=== PATIENT | male | born 1945 | race African-American/Black ===

== ENCOUNTER 2022-03-26 07:54 | Emergency (ER) | payer MEDICARE, MEDICAID ==
[~2022-03-26] VITALS: Ht 172.7 cm; Wt 68.0 kg
[2022-03-26] MEDS ORDERED: ACETAMINOPHEN 325MG TABLET PO ONE (09:15)
[2022-03-26 10:36] LABS: CLARITY URINE HAZY (CLEAR); COLOR URINE YELLOW (YELLOW)
[2022-03-26 10:37] LABS: PROTEIN URINE TRACE (NEGATIVE)
[2022-03-26 10:38] LABS: KETONES URINE NEGATIVE (NEGATIVE); LEUKOCYTE ESTERASE URINE 1+ (NEGATIVE); NITRITE URINE NEGATIVE (NEGATIVE); OCCULT BLOOD URINE TRACE (NEGATIVE); UROBILINOGEN URINE 0.2 E.U./dL (0.2-1.0)
[2022-03-26] MEDS ORDERED: AMOX-424 MT (11:02)
[2022-03-26] MEDS ORDERED: AMOXICILLIN/POTASSIUM CLAVULANATE 875/125MG TAB PO NR (11:15)
[2022-03-26 11:58] VITALS: BP 138/68
== END 2022-03-26 12:00 | disposition home or self-care (01) ==
LOC: ER 08:21
DX: N45.1 Epididymitis (principal); N39.0 Urinary tract infection, site not specified; I10 Essential (primary) hypertension; J44.9 Chronic obstructive pulmonary disease, unspecified; I25.2 Old myocardial infarction
CPT/HCPCS: 76870; 81003; 87077; 87186; 93976; 99285

== ENCOUNTER 2022-04-04 08:03 | Emergency (ER) | payer MEDICARE, MEDICAID ==
[~2022-04-04] VITALS: Ht 188 cm; Wt 75.0 kg
[~2022-04-04 08:03] MED LIST: AMOX-424 MT
[2022-04-04 08:05] VITALS: BP 138/76
[2022-04-04 09:14] LABS: CLARITY URINE CLEAR (CLEAR); COLOR URINE YELLOW (YELLOW); KETONES URINE NEGATIVE (NEGATIVE); LEUKOCYTE ESTERASE URINE TRACE (NEGATIVE); NITRITE URINE NEGATIVE (NEGATIVE); OCCULT BLOOD URINE NEGATIVE (NEGATIVE); PH URINE 5.5 (4.5-8.0); PROTEIN URINE NEGATIVE (NEGATIVE); SPECIFIC GRAVITY URINE 1.015 (1.005-1.030); UROBILINOGEN URINE 0.2 E.U./dL (0.2-1.0)
[2022-04-04] MEDS ORDERED: TOPUD PO (10:42)
== END 2022-04-04 11:42 | disposition home or self-care (01) ==
LOC: ER 08:43
DX: N50.812 Left testicular pain (principal); J44.1 Chronic obstructive pulmonary disease with (acute) exacerbation; I25.2 Old myocardial infarction; I10 Essential (primary) hypertension
CPT/HCPCS: 76870; 81003; 93976; 99284

== ENCOUNTER → 2022-05-24 | Outpatient (CLI) | payer OTHER, MEDICARE, MEDICAID ==
[~2022-05-24] MED LIST changes: +TOPUD PO
== END | disposition home or self-care (01) ==
LOC: NM 08:23
DX: J44.9 Chronic obstructive pulmonary disease, unspecified (principal); R06.02 Shortness of breath
CPT/HCPCS: 71045; 78582; A9540; A9558

== ENCOUNTER 2024-07-27 10:40 | Emergency (ER) | payer OTHER ==
[~2024-07-27] VITALS: Ht 177.8 cm; Wt 73.0 kg
[2024-07-27 10:45] VITALS: O2SAT 97
[2024-07-27 12:33] LABS: BASOPHILS % 0.9 % (0.0-2.0); EOSINOPHILS % 1.6 % (0.0-5.0); HEMATOCRIT. 42.3 % (42.0-52.0); HEMOGLOBIN. 13.9 g/dL (14.0-18.0); LYMPHOCYTES % 12.7 % (20.0-50.0); MEAN CORPUSCULAR HEMOGLOBIN 29.4 pg (28.0-32.0); MEAN CORPUSCULAR HGB CONC 32.9 g/dL (31.0-37.0); MEAN CORPUSCULAR VOLUME 89.6 fL (80.0-94.0); MEAN PLATELET VOLUME 8.7 fl (7.4-10.4); MONOCYTES % 9.8 % (2.0-8.0); PLATELET 196 x1000/uL (130-400); RED BLOOD CELL COUNT 4.72 mill/uL (4.7-6.1); RED CELL DISTRIBUTION WIDTH 15.7 % (11.6-14.6); WHITE BLOOD COUNT 5.8 x1000/uL (4.5-11.0)
[2024-07-27] MEDS: ACETAMINOPHEN 325MG TABLET PO NR (12:35)
[2024-07-27 12:40] LABS: CHLORIDE 105 mEq/L (98-107); POTASSIUM 4.1 mEq/L (3.5-5.1); SODIUM 140 mEq/L (136-145)
[2024-07-27 12:41] LABS: CALCIUM 9.1 mg/dL (8.7-10.4); CARBON DIOXIDE 33 mEq/L (21-32)
[2024-07-27 12:46] LABS: GLUCOSE 110 mg/dL (70-105); UREA NITROGEN BLOOD 11 mg/dL (9-23)
[2024-07-27 12:48] LABS: ALANINE AMINOTRANSFERASE 15 IU/L (10-49); ALBUMIN 3.9 g/dL (3.2-4.8); ASPARTATE AMINOTRANSFERASE 16 IU/L (<34); BILIRUBIN DIRECT 0.2 mg/dL (<=3.0); BILIRUBIN TOTAL 0.4 mg/dL (0.1-1.0)
[2024-07-27 12:53] LABS: PROTHROMBIN TIME 11.6 sec (9.6-11.0)
[2024-07-27 13:42] LABS: CLARITY URINE CLEAR (CLEAR); COLOR URINE YELLOW (YELLOW); GLUCOSE URINE NEGATIVE (NEGATIVE); KETONES URINE NEGATIVE (NEGATIVE); LEUKOCYTE ESTERASE URINE 2+ (NEGATIVE); NITRITE URINE NEGATIVE (NEGATIVE); OCCULT BLOOD URINE NEGATIVE (NEGATIVE); PH URINE 6.5 (4.5-8.0); PROTEIN URINE NEGATIVE (NEGATIVE); SPECIFIC GRAVITY URINE 1.011 (1.005-1.030); UROBILINOGEN URINE 0.2 E.U./dL (0.2-1.0)
[2024-07-27 13:59] LABS: BACTERIA URINE 2+; RBC URINE 0-2 /hpf (0-2); SQUAMOUS EPITHELIAL CELL URINE RARE /lpf (RARE/1+); WBC URINE 15-25 /hpf (0-2); YEAST URINE NONE SEEN
[2024-07-27] MEDS ORDERED: ESMOLOL 2500MG PREMIX 250 ML IV NR (16:30)
[2024-07-27] MEDS ORDERED: CEFEPIME 1GM IN DEXT 5% 50ML IV ONE (17:00)
[2024-07-27] MEDS ORDERED: ATORVASTATIN (17:27)
[2024-07-27] MEDS ORDERED: LOSARTAN (17:27)
[2024-07-27] MEDS ORDERED: ASPIRIN (17:27)
[2024-07-27] MEDS ORDERED: PLAVIX (17:27)
[2024-07-27] MEDS ORDERED: METOPROLOL (17:27)
[2024-07-27] MEDS: IOHEXOL-300 100 ML BOTTLE ONE (17:40)
[2024-07-27] MEDS: ESMOLOL 2500MG PREMIX 250 ML IV PRN (17:40)
[2024-07-27] MEDS: CEFEPIME 1GM/50ML 50 ML IV NR (18:06)
[2024-07-27] MEDS: MORPHINE SULFATE 4 MG/ML INJ (FOR IV/IM USE) IV NR (18:06)
[2024-07-27 18:22] VITALS: BP 142/76; PULSE 55; RESP 16; TEMP 36.78072; O2SAT 97
[2024-07-27] MEDS ORDERED: IOHEXOL-300 100 ML BOTTLE ONE (23:35)
== END 2024-07-27 18:54 | disposition short-term general hospital (02) ==
LOC: ER 10:40
DX: T82.330A Leakage of aortic (bifurcation) graft (replacement), initial encounter (principal); J44.9 Chronic obstructive pulmonary disease, unspecified; I10 Essential (primary) hypertension; K59.00 Constipation, unspecified; X58.XXXA Exposure to other specified factors, initial encounter; Y93.89 Activity, other specified; Y92.89 Other specified places as the place of occurrence of the external cause; Y99.8 Other external cause status
CPT/HCPCS: 99285; 74177; 96365; 71045; 80076; 80048; 81003; 83690; 85025; 85610; 87086; 87186; 87077; 36415; 96368; Q9967; J0692; J3490

== ENCOUNTER 2025-09-18 01:30 | Inpatient (IN) | payer OTHER ==
[2025-09-18] VITALS (7 sets, daily range): BP systolic 114–126; BP diastolic 56–63; PULSE 74–88; RESP 16–20; TEMP 36–36.4; O2SAT 94–99
[~2025-09-18] VITALS: Ht 177.8 cm; Wt 61.2 kg
[~2025-09-18 01:30] MED LIST changes: +ALBU90AE INH; +ALFU10TA46 PO; -AMOX-424 MT; +ASPIRIN PO; +ATORVASTATIN PO; +AZIT500T8 MT; +LOSARTAN PO; +METOPROLOL; +P20 MT; +PLAVIX; +PROT40 MT; +TAMS-54 PO; -TOPUD PO
[2025-09-18] MEDS ORDERED: MORPHINE SULFATE 4 MG/ML INJ (FOR IV/IM USE) IV ONE (01:45)
[2025-09-18] MEDS: ONDANSETRON HCL 4MG/2ML INJ IV ONE (01:45)
[2025-09-18 02:28] LABS: HEMATOCRIT. 40.1 % (42.0-52.0); HEMOGLOBIN. 12.5 g/dL (14.0-18.0); MEAN PLATELET VOLUME 9.2 fl (7.4-10.4); PLATELET 140 x1000/uL (130-400); RED BLOOD CELL COUNT 4.54 mill/uL (4.7-6.1); RED CELL DISTRIBUTION WIDTH 16.4 % (11.6-14.6)
[2025-09-18 02:39] LABS: CREATININE 1.0 mg/dL (0.6-1.3); UREA NITROGEN BLOOD 11 mg/dL (9-23)
[2025-09-18 02:41] LABS: ASPARTATE AMINOTRANSFERASE 20 IU/L (<34); BILIRUBIN DIRECT 0.2 mg/dL (<=3.0); BILIRUBIN TOTAL 0.6 mg/dL (0.1-1.0); PROTEIN TOTAL 6.5 g/dL (6.0-8.3)
[2025-09-18] MEDS: MORPHINE SULFATE 4 MG/ML INJ (FOR IV/IM USE) IV NR (03:42)
[2025-09-18] MEDS: ONDANSETRON HCL 4MG/2ML INJ IV NR (03:42)
[2025-09-18] MEDS ORDERED: IPRATROPIUM/ALBUTEROL 0.5-3(2.5)MG/3ML NEB HHN PRN (08:00)
[2025-09-18] MEDS ORDERED: MAGNESIUM/ALUMINUM HYDROXIDE/SIMETHICONE 30ML UDC PO PRN (08:00)
[2025-09-18] MEDS ORDERED: ONDANSETRON HCL 4MG/2ML INJ IV PRN (08:00)
[2025-09-18] MEDS ORDERED: ACETAMINOPHEN 325MG TABLET PO PRN (08:00)
[2025-09-18 08:39] LABS: BAND% 1.0 % (1.0-6.0); LYMPHOCYTES % MANUAL 4.0 % (20.0-50.0); MONOCYTES % MANUAL 9.0 % (2.0-8.0); NEUTROPHILS % MANUAL 86.0 % (45.0-75.0); PLATELET ESTIMATE NORMAL
[2025-09-18] MEDS ORDERED: NALOXONE HCL 0.4MG/ML VIAL IV PRN (09:00)
[2025-09-18] MEDS: HYDROCODONE/ACETAMINOPHEN 5/325MG TABLET PO PRN (09:42)
[2025-09-18] MEDS: ASPIRIN 81MG TABLET PO SCH (11:03)
[2025-09-18] MEDS: ENOXAPARIN 40MG/0.4ML SYR SUBCUT SCH (11:03)
[2025-09-18] MEDS: SODIUM CHLORIDE 0.45% 1,000 ML IV SCH (11:04)
[2025-09-18] MEDS: AZITHROMYCIN 500MG/250ML 250 ML IV SCH (11:53)
[2025-09-18] MEDS: IPRATROPIUM/ALBUTEROL 0.5-3(2.5)MG/3ML NEB HHN SCH (17:57)
[2025-09-18] MEDS: ATORVASTATIN CALCIUM 40MG TABLET PO SCH (20:23)
[2025-09-19] VITALS (11 sets, daily range): BP systolic 126–150; BP diastolic 71–81; PULSE 72–101; RESP 16–24; TEMP 36.2–36.6; O2SAT 91–97
[2025-09-19 00:53] LABS: FOLIC ACID (FOLATE) SERUM 3.83 ng/mL (>5.38)
[2025-09-19 00:54] LABS: VITAMIN B12 SERUM 579 pg/mL (211-911)
[2025-09-19 01:10] LABS: TROPONIN I HIGH SENSITIVITY 4920 ng/L (3.0-53)
[2025-09-19 02:07] LABS: CREATINE KINASE MB FRACTION 5.5 ng/mL (0.5-3.6)
[2025-09-19 02:14] LABS: TROPONIN I HIGH SENSITIVITY 5316 ng/L (3.0-53)
[2025-09-19] MEDS ORDERED: ENALAPRIL 1.25 MG in DEXTROSE 5% WATER 50 ML IV PRN (02:30)
[2025-09-19] MEDS ORDERED: ENALAPRIL 2.5MG/2ML VIAL 2ML IV SCH (06:00)
[2025-09-19] MEDS: CLOPIDOGREL 75MG TABLET PO SCH (08:43)
[2025-09-19] MEDS: PANTOPRAZOLE SODIUM 40 MG/VIAL IV SCH (08:43)
[2025-09-19] MEDS ORDERED: ENALAPRIL 1.25MG/ML VIAL 1ML IV PRN (13:45)
[2025-09-19] MEDS: LOSARTAN 25 MG TABLET PO SCH (13:48)
[2025-09-19] MEDS ORDERED: ENOXAPARIN 60MG/0.6ML SYR SUBCUT NR (14:00)
[2025-09-19 14:04] LABS: HEMATOCRIT. 35.4 % (42.0-52.0); HEMOGLOBIN. 11.5 g/dL (14.0-18.0); MEAN PLATELET VOLUME 9.6 fl (7.4-10.4); PLATELET 127 x1000/uL (130-400); RED BLOOD CELL COUNT 4.03 mill/uL (4.7-6.1); RED CELL DISTRIBUTION WIDTH 16.4 % (11.6-14.6)
[2025-09-19] MEDS: ENOXAPARIN 30MG/0.3ML SYR SUBCUT SCH (14:15)
[2025-09-19 14:17] LABS: CREATINE KINASE MB FRACTION 3.1 ng/mL (0.5-3.6); CREATININE 0.7 mg/dL (0.6-1.3); TRIGLYCERIDE 50 mg/dL (0-150); UREA NITROGEN BLOOD 6 mg/dL (9-23)
[2025-09-19 14:18] LABS: ASPARTATE AMINOTRANSFERASE 24 IU/L (<34); BILIRUBIN DIRECT 0.2 mg/dL (<=3.0); BILIRUBIN TOTAL 0.5 mg/dL (0.1-1.0); CREATINE KINASE MB FRACTION 3.2 ng/mL (0.5-3.6); LDL CHOLESTEROL 25 mg/dL (5-100); PROTEIN TOTAL 6.0 g/dL (6.0-8.3)
[2025-09-19 14:21] LABS: T4 FREE 1.63 ng/dL (0.89-1.76)
[2025-09-19 14:27] LABS: TROPONIN I HIGH SENSITIVITY 4066 ng/L (3.0-53)
[2025-09-19] MEDS ORDERED: LOSA100T33 PO (16:47)
[2025-09-19] MEDS ORDERED: CLOP-31 PO (16:47)
[2025-09-19] MEDS ORDERED: ASPI-1497 PO (16:47)
[2025-09-19] MEDS ORDERED: ATOR-2 PO (16:48)
[2025-09-19] MEDS: NITROGLYCERIN OINT 1GM/INCH UDPKT TD SCH (18:30)
[2025-09-19] MEDS ORDERED: ENOXAPARIN 60MG/0.6ML SYR SUBCUT SCH (21:00)
[2025-09-19 21:27] LABS: LYMPHOCYTES % MANUAL 9.0 % (20.0-50.0); MONOCYTES % MANUAL 10.0 % (2.0-8.0); NEUTROPHILS % MANUAL 81.0 % (45.0-75.0); PLATELET ESTIMATE SLIGHTLY DECREASED
[2025-09-20] VITALS (10 sets, daily range): BP systolic 121–140; BP diastolic 71–87; PULSE 70–92; RESP 16–23; TEMP 35.7–36.7; O2SAT 93–100
[2025-09-20 01:20] LABS: TROPONIN I HIGH SENSITIVITY 3404 ng/L (3.0-53)
[2025-09-20] MEDS ORDERED: ENOXAPARIN 60MG/0.6ML SYR SUBCUT SCH (06:00)
[2025-09-20] MEDS: HYDROMORPHONE HCL/PF 2MG/ML INJ IV PRN (06:17)
[2025-09-20 07:15] LABS: BASOPHILS % 0.2 % (0.0-2.0); EOSINOPHILS % 1.5 % (0.0-5.0); HEMATOCRIT. 39.3 % (42.0-52.0); HEMOGLOBIN. 12.7 g/dL (14.0-18.0); LYMPHOCYTES % 7.8 % (20.0-50.0); MEAN PLATELET VOLUME 9.3 fl (7.4-10.4); MONOCYTES % 11.2 % (2.0-8.0); NEUTROPHILS % 79.3 % (40.0-76.0); PLATELET 163 x1000/uL (130-400); RED BLOOD CELL COUNT 4.48 mill/uL (4.7-6.1); RED CELL DISTRIBUTION WIDTH 16.5 % (11.6-14.6)
[2025-09-20 07:37] LABS: INR 1.1
[2025-09-20 07:39] LABS: CREATININE 0.6 mg/dL (0.6-1.3)
[2025-09-20 07:40] LABS: UREA NITROGEN BLOOD 5 mg/dL (9-23)
[2025-09-20] MEDS: METOPROLOL SUCCINATE 50MG ER TABLET PO SCH (08:42)
[2025-09-20] MEDS: ENOXAPARIN 60MG/0.6ML SYR SUBCUT SCH (08:42)
[2025-09-20] MEDS: AMLODIPINE 2.5MG TABLET PO SCH (08:42)
[2025-09-20] MEDS ORDERED: CEFTRIAXONE 1GM/50ML 50 ML IV SCH (16:00)
[2025-09-20] MEDS: FUROSEMIDE 40MG/4ML VIAL IVP SCH (16:11)
[2025-09-20] MEDS: POLYETHYLENE GLYCOL 3350 (17GM) 1 DOSE PACK PO SCH (16:12)
[2025-09-20] MEDS: CEFTRIAXONE 1GM/50ML 50 ML IV SCH (18:02)
[2025-09-21] VITALS: BP 159/95; PULSE 82; RESP 18; TEMP 36.7; O2SAT 96
[2025-09-21] MEDS: CLONIDINE 0.1MG TABLET PO PRN (01:03)
[2025-09-21 02:54] VITALS: PULSE 85; RESP 18; O2SAT 95
[2025-09-21 04:00] VITALS: BP 140/82; PULSE 80; RESP 18; TEMP 36.4; O2SAT 98
[2025-09-21 08:42] LABS: PLATELET 178 x1000/uL (130-400); RED BLOOD CELL COUNT 4.31 mill/uL (4.7-6.1); RED CELL DISTRIBUTION WIDTH 16.3 % (11.6-14.6)
[2025-09-21 08:56] LABS: CREATININE 0.7 mg/dL (0.6-1.3)
[2025-09-21 08:57] LABS: UREA NITROGEN BLOOD 9 mg/dL (9-23)
[2025-09-21 08:58] VITALS: PULSE 94; RESP 18; O2SAT 96
[2025-09-21] MEDS ORDERED: FENTANYL CITRATE/PF 50MCG/ML 2ML VIAL ONE (10:05)
[2025-09-21] MEDS ORDERED: IODIXANOL 320MG/ML 100 ML BOTTLE IV ONE (10:06)
[2025-09-21] MEDS ORDERED: HEPARIN 1000 UNITS/ML 10ML ONE (10:06)
[2025-09-21] MEDS ORDERED: MIDAZOLAM HCL 2 MG/2 ML VIAL ONE (10:06)
[2025-09-21] MEDS ORDERED: LIDOCAINE HCL 1% 20ML VIAL ONE (10:07)
[2025-09-21] MEDS ORDERED: ASPIRIN/SOD BICARB/CITRIC ACID 324MG TAB EFF ONE (10:17)
[2025-09-21 10:34] LABS: TROPONIN I HIGH SENSITIVITY 2725 ng/L (3.0-53)
[2025-09-21] MEDS: SODIUM CHLORIDE 0.45% 1,000 ML IV ONE (11:15)
[2025-09-21] MEDS ORDERED: ATROPINE SULFATE 1MG/10ML SYR IV PRN (11:15)
[2025-09-21] MEDS ORDERED: ONDANSETRON HCL 4MG/2ML INJ IV PRN (11:15)
[2025-09-21] MEDS ORDERED: ACETAMINOPHEN 325MG TABLET PO PRN (11:15)
[2025-09-21 12:26] VITALS: PULSE 91; RESP 17; O2SAT 99
[2025-09-21 20:25] VITALS: BP 147/80; PULSE 92; RESP 18; TEMP 36.7; O2SAT 95
[2025-09-22] VITALS (9 sets, daily range): BP systolic 111–158; BP diastolic 67–88; PULSE 73–104; RESP 15–24; TEMP 36.3–36.8; O2SAT 94–99
[2025-09-22 06:45] LABS: HEMATOCRIT. 35.8 % (42.0-52.0); HEMOGLOBIN. 11.8 g/dL (14.0-18.0); MEAN PLATELET VOLUME 10.1 fl (7.4-10.4); PLATELET 160 x1000/uL (130-400); RED BLOOD CELL COUNT 4.13 mill/uL (4.7-6.1); RED CELL DISTRIBUTION WIDTH 15.8 % (11.6-14.6)
[2025-09-22 07:13] LABS: CREATININE 0.7 mg/dL (0.6-1.3)
[2025-09-22 07:14] LABS: UREA NITROGEN BLOOD 9 mg/dL (9-23)
[2025-09-22] MEDS: DOCUSATE SODIUM 100MG CAPSULE PO PRN (09:28)
[2025-09-22] MEDS: FOLIC ACID 1MG TABLET PO SCH (09:28)
[2025-09-22] MEDS: GUAIFENESIN 200MG/10ML SUGAR FREE UDC PO PRN (09:28)
[2025-09-22 12:44] LABS: TROPONIN I HIGH SENSITIVITY 1482 ng/L (3.0-53)
[2025-09-22] MEDS: ACETAMINOPHEN 325MG TABLET PO PRN (13:19)
[2025-09-22 15:18] LABS: LYMPHOCYTES % MANUAL 3.0 % (20.0-50.0); MONOCYTES % MANUAL 12.0 % (2.0-8.0); NEUTROPHILS % MANUAL 85.0 % (45.0-75.0); PLATELET ESTIMATE NORMAL
[2025-09-22] MEDS: NITROGLYCERIN OINT 1GM/INCH UDPKT TD SCH (16:02)
[2025-09-22] MEDS: IOHEXOL-300 100 ML BOTTLE ONE (16:03)
[2025-09-22] MEDS: MORPHINE SULFATE 4 MG/ML INJ (FOR IV/IM USE) IV ONE (16:04)
[2025-09-22] MEDS: AMLODIPINE 2.5MG TABLET PO SCH (22:07)
[2025-09-23] VITALS (8 sets, daily range): BP systolic 127–144; BP diastolic 71–90; PULSE 77–93; RESP 16–33; TEMP 36.4–36.8; O2SAT 92–99
[2025-09-23 06:26] LABS: HEMATOCRIT. 35.8 % (42.0-52.0); HEMOGLOBIN. 11.4 g/dL (14.0-18.0); MEAN PLATELET VOLUME 9.1 fl (7.4-10.4); PLATELET 169 x1000/uL (130-400); RED BLOOD CELL COUNT 4.09 mill/uL (4.7-6.1); RED CELL DISTRIBUTION WIDTH 16.5 % (11.6-14.6)
[2025-09-23 06:52] LABS: CREATININE 0.6 mg/dL (0.6-1.3)
[2025-09-23 06:53] LABS: UREA NITROGEN BLOOD 8 mg/dL (9-23)
[2025-09-23] MEDS: ENOXAPARIN 40MG/0.4ML SYR SUBCUT SCH (08:51)
[2025-09-23] MEDS: MORPHINE SULFATE 4 MG/ML INJ (FOR IV/IM USE) IV PRN (09:03)
[2025-09-23] MEDS: LACTULOSE 20G/30ML UDC PO NR (10:53)
[2025-09-23] MEDS: NA PHOS,M-B/NA PHOS,DI-BA ENEMA 118ML PR ONE (11:32)
[2025-09-23 13:50] LABS: TROPONIN I HIGH SENSITIVITY 741 ng/L (3.0-53)
[2025-09-23] MEDS: LACTULOSE 20G/30ML UDC PO SCH (16:05)
[2025-09-23] MEDS: NITROGLYCERIN OINT 1GM/INCH UDPKT TD SCH (16:06)
[2025-09-23 17:11] LABS: LYMPHOCYTES % MANUAL 7.0 % (20.0-50.0); MONOCYTES % MANUAL 19.0 % (2.0-8.0); NEUTROPHILS % MANUAL 74.0 % (45.0-75.0); PLATELET ESTIMATE NORMAL
[2025-09-23] MEDS: LOSARTAN 25 MG TABLET PO SCH (22:12)
[2025-09-24] VITALS (9 sets, daily range): BP systolic 119–155; BP diastolic 71–80; PULSE 73–87; RESP 17–24; TEMP 36.3–36.9; O2SAT 90–98
[2025-09-24 06:51] LABS: HEMATOCRIT. 36.3 % (42.0-52.0); HEMOGLOBIN. 11.6 g/dL (14.0-18.0); MEAN PLATELET VOLUME 9.0 fl (7.4-10.4); PLATELET 191 x1000/uL (130-400); RED BLOOD CELL COUNT 4.15 mill/uL (4.7-6.1); RED CELL DISTRIBUTION WIDTH 16.3 % (11.6-14.6)
[2025-09-24 07:10] LABS: CREATININE 0.7 mg/dL (0.6-1.3); UREA NITROGEN BLOOD 8 mg/dL (9-23)
[2025-09-24] MEDS: POTASSIUM CHLORIDE 20MEQ/PACKET PO NR (08:40)
[2025-09-24] MEDS: FUROSEMIDE 40MG/4ML VIAL IVP NR (09:58)
[2025-09-24 10:25] LABS: TROPONIN I HIGH SENSITIVITY 373 ng/L (3.0-53)
[2025-09-24] MEDS: IPRATROPIUM/ALBUTEROL 0.5-3(2.5)MG/3ML NEB HHN SCH ×2 (11:00→11:12)
[2025-09-24] MEDS ORDERED: IPRATROPIUM/ALBUTEROL 0.5-3(2.5)MG/3ML NEB HHN SCH (12:00)
[2025-09-24] MEDS: CEFTRIAXONE 1GM/50ML 50 ML IV SCH (17:27)
[2025-09-24] MEDS ORDERED: METO25TA6 PO (20:38)
[2025-09-24] MEDS ORDERED: LOSA50TA41 MT (20:38)
[2025-09-24] MEDS ORDERED: SENN-22 MT (20:38)
[2025-09-24] MEDS: AMLODIPINE 2.5MG TABLET PO SCH (22:00)
[2025-09-24] MEDS: METOPROLOL TARTRATE 25MG TABLET PO SCH (22:00)
[2025-09-25] VITALS (9 sets, daily range): BP systolic 122–139; BP diastolic 62–81; PULSE 77–93; RESP 14–25; TEMP 36.4–36.8; O2SAT 90–99
[2025-09-25 07:36] LABS: TROPONIN I HIGH SENSITIVITY 180 ng/L (3.0-53)
[2025-09-25 07:40] LABS: CREATININE 0.6 mg/dL (0.6-1.3)
[2025-09-25 07:41] LABS: HEMATOCRIT. 32.4 % (42.0-52.0); HEMOGLOBIN. 10.6 g/dL (14.0-18.0); MEAN PLATELET VOLUME 8.7 fl (7.4-10.4); PLATELET 202 x1000/uL (130-400); RED BLOOD CELL COUNT 3.76 mill/uL (4.7-6.1); RED CELL DISTRIBUTION WIDTH 15.4 % (11.6-14.6); UREA NITROGEN BLOOD 10 mg/dL (9-23)
[2025-09-25] MEDS: TAMSULOSIN HCL 0.4MG SR CAPSULE PO SCH (09:19)
[2025-09-25] MEDS: POTASSIUM CHLORIDE 20MEQ TABLET SR PO SCH (17:51)
[2025-09-25 17:59] LABS: EOSINOPHILS % MANUAL 4.0 % (0.0-5.0); LYMPHOCYTES % MANUAL 5.0 % (20.0-50.0); MONOCYTES % MANUAL 13.0 % (2.0-8.0); NEUTROPHILS % MANUAL 78.0 % (45.0-75.0); PLATELET ESTIMATE NORMAL
[2025-09-25 19:00] LABS: EOSINOPHILS % MANUAL 4.0 % (0.0-5.0); LYMPHOCYTES % MANUAL 9.0 % (20.0-50.0); MONOCYTES % MANUAL 12.0 % (2.0-8.0); NEUTROPHILS % MANUAL 75.0 % (45.0-75.0)
[2025-09-25 19:01] LABS: PLATELET ESTIMATE NORMAL
[2025-09-26] VITALS (9 sets, daily range): BP systolic 114–136; BP diastolic 65–88; PULSE 75–100; RESP 15–23; TEMP 36.6–37; O2SAT 91–98
[2025-09-26 07:47] LABS: CLARITY URINE CLEAR (CLEAR); COLOR URINE YELLOW (YELLOW); GLUCOSE URINE NEGATIVE (NEGATIVE); KETONES URINE NEGATIVE (NEGATIVE); LEUKOCYTE ESTERASE URINE 1+ (NEGATIVE); NITRITE URINE NEGATIVE (NEGATIVE); OCCULT BLOOD URINE 3+ (NEGATIVE); PH URINE 8.0 (4.5-8.0); PROTEIN URINE TRACE (NEGATIVE); SPECIFIC GRAVITY URINE 1.012 (1.005-1.030); UROBILINOGEN URINE 1.0 E.U./dL (0.2-1.0)
[2025-09-26 08:08] LABS: CREATININE 0.6 mg/dL (0.6-1.3); UREA NITROGEN BLOOD 5 mg/dL (9-23)
[2025-09-26 08:50] LABS: BACTERIA URINE NONE SEEN; SQUAMOUS EPITHELIAL CELL URINE 1+ /lpf (RARE/1+); YEAST URINE NONE SEEN
[2025-09-26 12:07] LABS: BASOPHILS % 0.1 % (0.0-2.0); EOSINOPHILS % 1.3 % (0.0-5.0); HEMATOCRIT. 34.8 % (42.0-52.0); HEMOGLOBIN. 11.4 g/dL (14.0-18.0); LYMPHOCYTES % 7.7 % (20.0-50.0); MEAN PLATELET VOLUME 9.1 fl (7.4-10.4); MONOCYTES % 11.3 % (2.0-8.0); NEUTROPHILS % 79.6 % (40.0-76.0); PLATELET 239 x1000/uL (130-400); RED BLOOD CELL COUNT 4.04 mill/uL (4.7-6.1); RED CELL DISTRIBUTION WIDTH 15.8 % (11.6-14.6)
[2025-09-26 12:25] LABS: TROPONIN I HIGH SENSITIVITY 96 ng/L (3.0-53)
[2025-09-26] MEDS: CEFTRIAXONE 1GM/50ML 50 ML IV SCH (22:05)
[2025-09-26] MEDS: KETOROLAC 15MG/ML VIAL IV PRN (22:06)
[2025-09-26] MEDS: AMLODIPINE 5MG TABLET PO SCH (22:08)
[2025-09-27] VITALS (9 sets, daily range): BP systolic 118–163; BP diastolic 69–75; PULSE 75–98; RESP 12–23; TEMP 36.7–36.9; O2SAT 94–99
[2025-09-27 08:02] LABS: CREATININE 0.6 mg/dL (0.6-1.3); TROPONIN I HIGH SENSITIVITY 64 ng/L (3.0-53); UREA NITROGEN BLOOD 7 mg/dL (9-23)
[2025-09-27 08:14] LABS: HEMATOCRIT. 32.1 % (42.0-52.0); HEMOGLOBIN. 10.5 g/dL (14.0-18.0); MEAN PLATELET VOLUME 9.0 fl (7.4-10.4); PLATELET 221 x1000/uL (130-400); RED BLOOD CELL COUNT 3.75 mill/uL (4.7-6.1); RED CELL DISTRIBUTION WIDTH 15.6 % (11.6-14.6)
[2025-09-27 14:00] LABS: LYMPHOCYTES % MANUAL 6.0 % (20.0-50.0); MONOCYTES % MANUAL 7.0 % (2.0-8.0); NEUTROPHILS % MANUAL 87.0 % (45.0-75.0); PLATELET ESTIMATE NORMAL
[2025-09-28] VITALS (10 sets, daily range): BP systolic 112–141; BP diastolic 59–77; PULSE 74–95; RESP 13–25; TEMP 36.5–37; O2SAT 93–100
[2025-09-29] VITALS: BP 134/72; PULSE 85; RESP 18; TEMP 36.7; O2SAT 98
[2025-09-29 01:03] VITALS: PULSE 88; RESP 20; O2SAT 97
[2025-09-29 04:00] VITALS: BP 116/64; PULSE 74; RESP 20; TEMP 36.8; O2SAT 96
[2025-09-29 08:00] VITALS: BP 116/64; PULSE 74; RESP 20; TEMP 36.8; O2SAT 97
[2025-09-29 10:38] VITALS: PULSE 87; RESP 21; O2SAT 96
== END 2025-09-29 12:33 | disposition left against medical advice (07) | DRG 947 ==
LOC: ER 01:30 → 6EST 06:34 → EDBEDREQ 06:37 → EDBEDREQTM 06:37 → EDBEDREQSVC 06:37 → ENRESERV 07:11 → 8WST 09-19 04:16 → 3WST 09-21 20:18
PROVIDERS: ADMIT Internal Medicine; ATTEND Internal Medicine
PROC: 4A023N7 Measurement of Cardiac Sampling and Pressure, Left Heart, Percutaneous Approach (ICD-10-PCS; principal; 2025-09-21)
PROC: B2111ZZ Fluoroscopy of Multiple Coronary Arteries using Low Osmolar Contrast (ICD-10-PCS; 2025-09-21)
PROC: B2151ZZ Fluoroscopy of Left Heart using Low Osmolar Contrast (ICD-10-PCS; 2025-09-21)
DX: G89.18 Other acute postprocedural pain (principal); I21.A1 Myocardial infarction type 2; J18.9 Pneumonia, unspecified organism; J96.21 Acute and chronic respiratory failure with hypoxia; J44.0 Chronic obstructive pulmonary disease with (acute) lower respiratory infection; Q25.0 Patent ductus arteriosus; J44.1 Chronic obstructive pulmonary disease with (acute) exacerbation; Z79.01 Long term (current) use of anticoagulants; Z79.02 Long term (current) use of antithrombotics/antiplatelets; D64.9 Anemia, unspecified; E11.65 Type 2 diabetes mellitus with hyperglycemia; I10 Essential (primary) hypertension; R10.84 Generalized abdominal pain; E53.8 Deficiency of other specified B group vitamins; E78.5 Hyperlipidemia, unspecified; L81.8 Other specified disorders of pigmentation; N40.0 Benign prostatic hyperplasia without lower urinary tract symptoms; Z53.29 Procedure and treatment not carried out because of patient's decision for other reasons; Z99.81 Dependence on supplemental oxygen; I25.10 Atherosclerotic heart disease of native coronary artery without angina pectoris; Z87.891 Personal history of nicotine dependence; I25.2 Old myocardial infarction; Z79.82 Long term (current) use of aspirin; Z79.899 Other long term (current) drug therapy; Z95.5 Presence of coronary angioplasty implant and graft
CPT/HCPCS: 36415; 71045; 74018; 74177; 80048; 80061; 80076; 81003; 82550; 82553; 82607; 82728; 82746; 83036; 83605; 83735; 83880; 84145; 84439; 84443; 84484; 85025; 85027; 93005; 93308; 93458; 93970; 94070; 94640; 94664; 97163; 97166; 97168; 97535; 99285; A4606; C1769; C1887; C1893; J0456; J0696; J1171; J1644; J1650; J1885; J1938; J2003; J2250; J2270; J2405; J2470; J3010; Q9967